=== PATIENT | male | born 1975 | race Caucasian/White ===

== ENCOUNTER 2024-03-04 19:05 | Emergency (ER) | payer OTHER ==
[~2024-03-04] VITALS: Ht 177.8 cm; Wt 95.3 kg
[2024-03-04 19:17] VITALS: BP 145/95; PULSE 94; RESP 14; TEMP 97.3; O2SAT 99
[2024-03-04] MEDS ORDERED: BACI-418 TP (19:43)
[2024-03-04] MEDS: LIDOCAINE MPF 1% 10 MG/ML VIAL INJ ONE (20:24)
== END 2024-03-04 20:25 | disposition home or self-care (01) ==
LOC: MED 19:05
DX: S01.411A Laceration without foreign body of right cheek and temporomandibular area, initial encounter (principal); I10 Essential (primary) hypertension; Z79.899 Other long term (current) drug therapy; V80.018A Animal-rider injured by fall from or being thrown from other animal in noncollision accident, initial encounter; Y93.89 Activity, other specified; Y92.89 Other specified places as the place of occurrence of the external cause; Y99.8 Other external cause status
CPT/HCPCS: 90471; 90715; 99283

== ENCOUNTER 2024-03-06 19:54 | Emergency (ER) | payer OTHER ==
[~2024-03-06] VITALS: Ht 177.8 cm; Wt 98.0 kg
[~2024-03-06 19:54] MED LIST: BACI-418 TP
[2024-03-06 20:07] VITALS: BP 164/109; PULSE 84; RESP 18; TEMP 97.8; O2SAT 98
== END 2024-03-06 20:24 | disposition home or self-care (01) ==
LOC: MED 19:54
DX: S01.411D Laceration without foreign body of right cheek and temporomandibular area, subsequent encounter (principal); I10 Essential (primary) hypertension; Z48.00 Encounter for change or removal of nonsurgical wound dressing; Z79.899 Other long term (current) drug therapy; X58.XXXD Exposure to other specified factors, subsequent encounter
CPT/HCPCS: 99282

== ENCOUNTER 2024-03-10 18:38 | Emergency (ER) | payer OTHER ==
[~2024-03-10] VITALS: Ht 177.8 cm; Wt 97.5 kg
[2024-03-10 18:52] VITALS: BP 168/101; PULSE 91; RESP 18; TEMP 98.6; O2SAT 99
== END 2024-03-10 19:30 | disposition home or self-care (01) ==
LOC: MED 18:38
DX: S01.81XD Laceration without foreign body of other part of head, subsequent encounter (principal); I10 Essential (primary) hypertension; Z48.00 Encounter for change or removal of nonsurgical wound dressing; Z79.899 Other long term (current) drug therapy; X58.XXXD Exposure to other specified factors, subsequent encounter
CPT/HCPCS: 99281